=== PATIENT | female | born 1945 | race Caucasian/White ===

== ENCOUNTER → 2022-03-14 | Outpatient (REF) | payer MEDICARE, OTHER ==
[~2022-03-14] MED LIST: LOVE1INJ SQ; MAGN400T PO; METO50TA2 PO; PROT1TAB2 PO; SYNT75TA PO; TRAZ100T2 PO; ZOLO100T PO
[2022-03-14 19:34] LABS: PERCENT SATURATION 41.7 % (13.2-45.0)
== END ==
LOC: M LAB REF 16:25
PROVIDERS: ATTEND Internal Medicine
DX: D64.9 Anemia, unspecified (principal)

== ENCOUNTER → 2024-08-11 | Outpatient (REF) | payer MEDICARE, OTHER ==
[2024-08-12 13:53] LABS: PERCENT SATURATION 14.9 % (13.2-45.0)
[2024-08-12 13:55] LABS: FERRITIN 10.8 NG/ML (7.3-270.7)
== END ==
LOC: M LAB REF 12:47
PROVIDERS: ATTEND Internal Medicine
DX: N18.9 Chronic kidney disease, unspecified (principal); D63.1 Anemia in chronic kidney disease

== ENCOUNTER → 2025-02-09 | Outpatient (REF) | payer MEDICARE, OTHER ==
[2025-02-09 19:16] LABS: PERCENT SATURATION 28.6 % (13.2-45.0)
[2025-02-09 19:19] LABS: FERRITIN 15.9 NG/ML (7.3-270.7)
== END ==
LOC: M LAB REF 17:33
PROVIDERS: ATTEND Internal Medicine
DX: D50.9 Iron deficiency anemia, unspecified (principal)

== ENCOUNTER → 2025-08-18 | Outpatient (REF) | payer MEDICARE, OTHER ==
[2025-08-18 18:43] LABS: IRON (FE) 117.0 UG/DL (50-170); PERCENT SATURATION 32.5 % (13.2-45.0)
== END ==
LOC: M LAB REF 17:27
PROVIDERS: ATTEND Internal Medicine
DX: D50.9 Iron deficiency anemia, unspecified (principal)